=== PATIENT | female | born 2000 ===

== ENCOUNTER 2023-06-01 06:57 | Inpatient (IN) | payer MEDICAID ==
[~2023-06-01] VITALS: Ht 152.4 cm; Wt 97.5 kg
[2023-06-01] MEDS ORDERED: WITCH HAZEL-GLYCERIN PAD TOP PRN (07:30)
[2023-06-01] MEDS ORDERED: PHISODERM TOP SOLN 240ML BTL TOP PRN (07:30)
[2023-06-01] MEDS ORDERED: LIDOCAINE 2%HCL (LOCAL ANESTH.) INJ 20ML MDV IJ PRN (07:30)
[2023-06-01] MEDS ORDERED: PROMETHAZINE HCL 25 MG/ML 1ML IM PRN (07:30)
[2023-06-01] MEDS ORDERED: BUTORPHANOL TARTRATE 2 MG/1 ML VIAL IV PRN ×2 (07:30)
[2023-06-01] MEDS ORDERED: DERMOPLAST 60ML BOTTLE TOP PRN (07:30)
[2023-06-01 07:52] LABS: Basophils # (auto) 0 10 ^3/uL (0-0.2); Basophils % (auto) 0.3 % (0.0-2.0); Eosinophils # (auto) 0.1 10 ^3/uL (0-0.8); Mean Corpuscular Hemoglobin 25.2 pg (28.0-32.0)
[2023-06-01 07:53] LABS: Eosinophils % (auto) 0.9 % (0.0-7.0); Hemoglobin 10.3 g/dL (12.2-16.2); Lymphocytes # (auto) 2.2 10 ^3/uL (0.4-5.4); Lymphocytes % (auto) 21.3 % (10.0-50.0); Mean Corpuscular Hgb Conc. 32.3 g/dL (32.0-36.0); Monocytes % (auto) 9.8 % (0.0-12.0); Neutrophils # (auto) 6.9 10 ^3/uL (1.6-8.6); Neutrophils % (auto) 67.7 % (37.0-80.0); Red Cell Distribution Width 15.3 % (11.8-14.3); White Blood Cell 10.3 10^3/uL (4.4-10.8)
[2023-06-01 07:54] LABS: Urine Bacteria FEW /hpf (None Seen); Urine Blood Negative /uL (Negative); Urine Clarity Clear (Clear); Urine Protein, UAD Negative (Negative); Urine Specific Gravity 1.007 (1.001-1.035); Urine Urobilinogen Normal (Negative); Urine WBC 1 /hpf (0 - 5)
[2023-06-01 07:55] LABS: Urine Color Straw (Yellow)
[2023-06-01 08:06] LABS: Alanine Aminotransferase 10 U/L (7-40); Alkaline Phosphatase 176 U/L (46-116); Anion Gap 8 (5-15); Aspartate Aminotransferase 16 U/L (13-40); Bilirubin, Total 0.6 mg/dL (0.2-1.0); Calcium 9.4 mg/dL (8.5-10.1); Carbon Dioxide 21 mmol/L (20-30); Chloride 107 mmol/L (98-107); Glucose 80 mg/dL (74-106); Potassium 3.9 mmol/L (3.5-5.1); Sodium 136 mmol/L (136-145)
[2023-06-01 08:07] LABS: BUN/Creatinine Ratio 7.7 (10.0-20.0); Blood Urea Nitrogen < 5 mg/dL (9-23)
[2023-06-01 08:08] LABS: INR 0.91 (0.9-1.15); Partial Thromboplastin Time 29.3 SEC (24.5-34.5); Prothrombin Time 9.6 sec (9.3-11.8)
[2023-06-01 08:19] LABS: Amphetamine Screen, Urine Neg (NEGATIVE); Barbiturate Scree,Urine Neg (NEGATIVE); Benzodiazephine Screen, Urine Neg (NEGATIVE); Cocaine Screen, Urine Neg (NEGATIVE)
[2023-06-01 08:20] LABS: Cannabinoid Screen, Urine Neg (NEGATIVE); Opiate Scree,Urine Neg (NEGATIVE); Phencyclidine Screen, Urine Neg (NEGATIVE)
[2023-06-01] MEDS: LACTATED RINGER'S 1,000 ML IV SCH ×2 (08:30→14:36)
[2023-06-01] MEDS: miSOPROStol 50 MCG per PRE-CUT 1/2 TAB PO PRN ×2 (10:21→18:48)
[2023-06-01] MEDS ORDERED: ONDANSETRON HCL 4 MG/2 ML VIAL IV PRN (14:00)
[2023-06-01] MEDS ORDERED: diphenhdrAMINE HCL 50 MG/1 ML VL IV PRN (14:00)
[2023-06-01] MEDS ORDERED: TRANEXAMIC ACID 1,000 MG in SODIUM CHL 0.9% 100 ML IV PRN (14:00)
[2023-06-01] MEDS ORDERED: CARBOPROST TROMETHAMINE 250 MCG/1ML VIAL IM PRN (14:00)
[2023-06-01] MEDS ORDERED: miSOPROStol 100 mcg TAB PR PRN (14:00)
[2023-06-01] MEDS ORDERED: fentaNYL CITRATE 100 MCG/2 ML VL IV PRN (14:00)
[2023-06-01] MEDS ORDERED: METHYLERGONOVINE MALEATE 0.2 MG/ML AMP IM PRN (14:00)
[2023-06-01] MEDS ORDERED: MINERAL OIL TOPICAL 10ml TOP PRN (14:00)
[2023-06-01] MEDS ORDERED: LACT. RINGERS/OXYTOCIN 20UNITS 500 ML IV ONE ×2 (14:15→14:45)
[2023-06-01] MEDS ORDERED: TERBUTALINE SULFATE 1 MG/ML 1ML VIAL SC PRN (17:00)
[2023-06-01] MEDS ORDERED: DIPHENOXYLATE W/ATROPINE 2.5 MG TAB PO SCH (18:00)
[2023-06-01] MEDS: PROMETHAZINE HCL 25 MG/ML 1ML IM PRN (23:39)
[2023-06-02] MEDS: LACTATED RINGER'S 1,000 ML IV SCH ×3 (04:30→21:52)
[2023-06-02] MEDS: PROMETHAZINE HCL 25 MG/ML 1ML IM PRN (04:55)
[2023-06-02] MEDS ORDERED: ePHEDrine SULFATE 50 MG/ML AMP IV ONE ×2 (06:30→07:00)
[2023-06-02] MEDS ORDERED: LIDOCAINE HCL 2 %PF INJ 10ML AMP IJ ONE ×2 (06:30→07:00)
[2023-06-02] MEDS ORDERED: NALOXONE HCL 0.4 MG/ML VIAL IV ONE ×2 (06:30→07:00)
[2023-06-02] MEDS ORDERED: fentaNYL CITRATE 100 MCG/2 ML VL IV ONE ×2 (06:30→07:00)
[2023-06-02] MEDS ORDERED: LACTATED RINGER'S 1,000 ML IV ONE ×2 (06:30→07:00)
[2023-06-02] MEDS ORDERED: ROPIVACAINE HCL 100 ML ONE ×2 (07:17→17:15)
[2023-06-02] MEDS ORDERED: TERBUTALINE SULFATE 1 MG/ML 1ML VIAL SC PRN (07:30)
[2023-06-02] MEDS ORDERED: LACT. RINGERS/OXYTOCIN 20UNITS 500 ML IV ONE ×2 (07:30→08:00)
[2023-06-02 08:07] LABS: RPR Non Reactive (Non Reactive)
[2023-06-02] MEDS: LACT. RINGERS/OXYTOCIN 20UNITS 1,000 ML IV SCH ×2 (09:44→23:34)
[2023-06-02] MEDS ORDERED: ROPIVACAINE HCL 100 ML EPI ONE (17:18)
[2023-06-03] MEDS ORDERED: ROPIVACAINE HCL 100 ML ONE (02:00)
[2023-06-03] MEDS ORDERED: CALCIUM CARB 500 MG CHEW TAB PO ONE (05:45)
[2023-06-03] MEDS: LACTATED RINGER'S 1,000 ML IV SCH ×3 (05:55→23:00)
[2023-06-03] MEDS ORDERED: ROPIVACAINE 0.5% (5MG/ML) 20ML AMPULE IJ ONE ×2 (11:00→11:15)
[2023-06-03] MEDS ORDERED: ceFAZolin 2 GM/D5W100ml 100 ML IV ONE (12:30)
[2023-06-03] MEDS ORDERED: oxyTOCIN 10 UNIT/ML 10ML VIAL ONE (12:30)
[2023-06-03] MEDS ORDERED: SODIUM BICARBONATE 8.4 % INJ 50ML VIAL IV ONE (12:31)
[2023-06-03] MEDS ORDERED: EPINEPHrine HCL 1 MG/1 ML AMP ONE (12:32)
[2023-06-03] MEDS ORDERED: LIDOCAINE HCL 2 %PF INJ 10ML AMP IJ ONE (12:32)
[2023-06-03] MEDS ORDERED: ONDANSETRON HCL 4 MG/2 ML VIAL ONE (12:34)
[2023-06-03] MEDS ORDERED: KETOROLAC TROMETH 30 MG/ML 1ML VIAL ONE (12:34)
[2023-06-03] MEDS ORDERED: DexAMETHasone SOD PHOS 10MG/1ML VIAL INJ ONE (12:34)
[2023-06-03] MEDS ORDERED: fentaNYL CITRATE 100 MCG/2 ML VL ONE (12:35)
[2023-06-03] MEDS ORDERED: MORPHINE SULF PF 5 MG/10 ML VIAL ONE (12:35)
[2023-06-03 13:45] VITALS: O2SAT 97
[2023-06-03] MEDS ORDERED: ONDANSETRON HCL 4 MG/2 ML VIAL IV PRN ×2 (14:00→15:00)
[2023-06-03] MEDS ORDERED: diphenhdrAMINE HCL 50 MG/1 ML VL IV PRN (14:00)
[2023-06-03] MEDS ORDERED: HYDROmorphone HCL 2 MG/ML VL/or syr IV PRN ×2 (14:00→15:00)
[2023-06-03] MEDS ORDERED: NALOXONE HCL 0.4 MG/ML VIAL IV PRN (14:00)
[2023-06-03] MEDS ORDERED: NALBUPHINE HCL 10 MG/1ml INJECTION IV ONE (14:00)
[2023-06-03] MEDS ORDERED: MORPHINE SULFATE 4 MG/ML SYR/VIAL IV PRN (15:00)
[2023-06-03] MEDS ORDERED: ACETAMINOPHEN IV 1000 MG/100ML (10MG/ML) IV PRN (15:00)
[2023-06-03 16:48] LABS: Eosinophils # (auto) 0 10 ^3/uL (0-0.8); Hemoglobin 9.7 g/dL (12.2-16.2); Lymphocytes % (auto) 4.9 % (10.0-50.0); Monocytes # (auto) 0.7 10 ^3/uL (0-1.3); Monocytes % (auto) 3.4 % (0.0-12.0)
[2023-06-03 16:49] LABS: Basophils # (auto) 0 10 ^3/uL (0-0.2); Basophils % (auto) 0.2 % (0.0-2.0); Hematocrit 31.1 % (36.0-46.0); Lymphocytes # (auto) 1.1 10 ^3/uL (0.4-5.4); Mean Corpuscular Hemoglobin 24.5 pg (28.0-32.0); Mean Corpuscular Hgb Conc. 31.2 g/dL (32.0-36.0); Mean Corpuscular Volume 78.7 fL (80.0-100.0); Neutrophils # (auto) 19.6 10 ^3/uL (1.6-8.6); Neutrophils % (auto) 91.5 % (37.0-80.0); Red Blood Cells 3.95 10^6/uL (4.0-5.20); Red Cell Distribution Width 15.6 % (11.8-14.3); White Blood Cell 21.5 10^3/uL (4.4-10.8)
[2023-06-03 19:00] VITALS: BP_SYST 115; BP_SYST 135; BP_DIAS 68; BP_DIAS 71; PULSE 62; PULSE 95; RESP 18; TEMP 98.8; O2SAT 96
[2023-06-03 20:00] VITALS: BP 102/70; PULSE 97
[2023-06-03 21:00] VITALS: BP 105/68; PULSE 97
[2023-06-03] MEDS: ceFAZolin 1GM/50ML 50 ML IV SCH (21:02)
[2023-06-03 22:00] VITALS: BP 110/72; PULSE 96
[2023-06-03 23:00] VITALS: BP 103/67; PULSE 95
[2023-06-04] VITALS (16 sets, daily range): BP systolic 101–127; BP diastolic 60–80; PULSE 75–102; RESP 16–20; TEMP 97.7–98.5; O2SAT 10–99
[2023-06-04] MEDS: ceFAZolin 1GM/50ML 50 ML IV SCH ×2 (04:47→13:17)
[2023-06-04] MEDS: LACTATED RINGER'S 1,000 ML IV SCH (07:00)
[2023-06-04 09:43] LABS: Basophils # (auto) 0 10 ^3/uL (0-0.2); Basophils % (auto) 0.1 % (0.0-2.0); Eosinophils # (auto) 0 10 ^3/uL (0-0.8); Eosinophils % (auto) 0.2 % (0.0-7.0); Hematocrit 27.8 % (36.0-46.0); Hemoglobin 8.9 g/dL (12.2-16.2); Lymphocytes # (auto) 2.8 10 ^3/uL (0.4-5.4); Lymphocytes % (auto) 15.7 % (10.0-50.0); Mean Corpuscular Hemoglobin 24.9 pg (28.0-32.0); Mean Corpuscular Hgb Conc. 32.1 g/dL (32.0-36.0); Mean Corpuscular Volume 77.6 fL (80.0-100.0); Monocytes % (auto) 5.3 % (0.0-12.0); Neutrophils # (auto) 14.1 10 ^3/uL (1.6-8.6); Neutrophils % (auto) 78.7 % (37.0-80.0); Red Blood Cells 3.58 10^6/uL (4.0-5.20); Red Cell Distribution Width 15.6 % (11.8-14.3)
[2023-06-04] MEDS ORDERED: HYDROcodone-ACET 5/325MG TAB PO PRN (15:30)
[2023-06-04] MEDS ORDERED: IBUPROFEN 800 MG TAB PO PRN (15:30)
[2023-06-04] MEDS ORDERED: BISACODYL 10 MG RECT SUPP PR PRN (15:30)
[2023-06-04] MEDS: HYDROcodone-ACET 5/325MG TAB PO PRN ×2 (17:17→21:44)
[2023-06-04] MEDS: SIMETHICONE 80 MG CHEWABLE TABLET PO SCH ×2 (17:48→21:42)
[2023-06-04] MEDS: DOCUSATE SOD 100 MG CAP PO SCH (21:41)
[2023-06-05] MEDS: HYDROcodone-ACET 5/325MG TAB PO PRN (01:21)
[2023-06-05 03:00] VITALS: BP 132/83; PULSE 102; RESP 16; TEMP 98.1; O2SAT 98
[2023-06-05] MEDS: SIMETHICONE 80 MG CHEWABLE TABLET PO SCH (06:00)
[2023-06-05 06:59] VITALS: BP 122/83; PULSE 89; RESP 16; TEMP 97.9; O2SAT 97
[2023-06-05] MEDS ORDERED: DOCUSATE CALCIUM 240 MG CAP PO SCH (10:00)
[2023-06-05] MEDS: DOCUSATE SOD 100 MG CAP PO SCH (10:01)
[2023-06-05] MEDS ORDERED: IBUP-1456 PO (10:23)
[2023-06-05] MEDS ORDERED: DOCU-94 PO (10:23)
[2023-06-05] MEDS ORDERED: HYDR-4902 PO (10:23)
[2023-06-05 11:00] VITALS: BP 136/83; PULSE 94; RESP 20; TEMP 99; O2SAT 98
[2023-06-05] MEDS ORDERED: LACTATED RINGER'S 1,000 ML IV ONE (11:45)
[2023-06-05 14:42] VITALS: BP 131/83; PULSE 99; RESP 18; TEMP 98.5; O2SAT 97
[2023-06-07 19:06] LABS: Treponema pallidum Ab (FTA-Ab) Non Reactive (Non Reactive)
== END 2023-06-05 15:05 | disposition home or self-care (01) | DRG 540 ==
LOC: LDRP 06:57
PROVIDERS: ADMIT Obstetrics & Gynecology; ATTEND Obstetrics & Gynecology
PROC: 10D00Z1 Extraction of Products of Conception, Low, Open Approach (ICD-10-PCS; principal; 2023-06-03 12:50)
DX: O62.0 Primary inadequate contractions (principal); O61.9 Failed induction of labor, unspecified; D50.9 Iron deficiency anemia, unspecified; O33.9 Maternal care for disproportion, unspecified; O36.63X0 Maternal care for excessive fetal growth, third trimester, not applicable or unspecified; O99.02 Anemia complicating childbirth; Z37.0 Single live birth; Z3A.39 39 weeks gestation of pregnancy
CPT/HCPCS: 36415; 59025; 59200; 62282; 76805; 76818; 80053; 80307; 81001; 81002; 85025; 85610; 85730; 86592; 86850; 86900; 86901; 94760; 96360; 96361; 96365; 96366; 96372; 96374; 96375; G0378; J0171; J1100; J1885; J2405; J2590